=== PATIENT | female | born 1955 | race Hispanic/Latino ===

== ENCOUNTER → 2017-09-18 | Day surgery (SDC) | payer MEDICARE, OTHER ==
[2017-09-16 11:04] LABS: BLOOD UREA NITROGEN 11 mg/dL (7-26); BUN/CREATININE RATIO 17 (6-25); CARBON DIOXIDE 31 mmol/L (22-29); CHLORIDE 104 mmol/L (98-107); CREATININE, SERUM 0.65 mg/dL (0.57-1.11); EST GLOMERULAR FILTRATION RATE > 60 ML/MIN (60-); GLUCOSE 120 mg/dL (74-118); SODIUM 140 mmol/L (136-145)
[~2017-09-18] MED LIST: ATORVASTATIN CA20 MG PO; CEFTRIAXONE SOD 1 GM VIAL ONE; DEXAMETHASONE SOD PHOS INJ 4 MG/ML VIAL ONE; FENTANYL CITRATE/PF 100MCG/2 ML INJ ONE; GABAPENTIN300 MG PO; LIDOCAINE HCL 2% LOCAL INJ 5 ML SDV VIAL INJ ONE; METFORMIN HCL500 MG PO; MIDAZOLAM HCL 2 MG/2 ML VIAL ONE; ONDANSETRON HCL INJ 2 MG/ML VIAL ONE; PROPOFOL IV EMULSION 10 MG/ML 20 ML VIAL ONE; SEVOFLURANE INHAL SOLN 250 ML PEN BTL ONE
--- OUTSIDE RECORDS SUMMARY | 2017-09-18 06:02 | XMS REPORT ---
Author Author [facility] Address Unknown Phone Unavailable Care Team Providers Care Scientific Technical Writer Name Role Phone Unavailable Unavailable Problems This patient has no known problems. Allergies, Adverse Reactions, Alerts This patient has no known allergies or adverse reactions. Medications This patient has no known medications. Results Test Description Test Time Test Comments Text Results Atomic Results Result Comments CT ABDOMEN AND PELVIS W/WO CLINICAL INDICATION: R10.31 Right lower quadrant painR10.32 Left lower quadrant painR10.2 Pelvic and perineal painF33.2 Major depressv disorder, recurrent severe w/o psych featuresMODALITY: Siemens Aipai CT (Iterative dose reduction techniques are utilized.)TECHNIQUE: Helical imaging of the abdomen and pelvis is performed. Oral contrast is administered. 90 mls optiray are administered IV. Imaging performed prior to and after administration of contrast.Computed Tomography Dose Index: 47.68 mGy. IMPRESSION:1. No acute abnormality.2. Multiple, small nonobstructing bilateral renal calculi, predominately on the left.3. Hysterectomy.FINDINGS: COMPARISON: NoneThe lung bases are clear. No pleural disease is present. Aortic valve calcifications are noted.The liver is normal in size and contour with no focal attenuation defect suspicious for replacement lesion or abnormal contrast enhancement. Hepatic veins, portal venous system and biliary tree are normal. The gallbladder is normal in appearance.Stomach and duodenum are unremarkable. The spleen is normal in size and contour. No pancreatic mass, pancreatic duct dilatation or peripancreatic edema is visible.Adrenal glands are normal. Small bilateral renal cortical hypodensities are suggestive of cysts. A 6 mm nonobstructing stone is present in the right kidney lower pole. Multiple small nonobstructing stones are present in the left kidney lower pole. These measure up to 5 mm in size. There is no evidence of solid enhancing renal mass or hydronephrosis. The ureters are normal in caliber and without evidence of stone.Neither retrocrural nor retroperitoneal adenopathy is present. Vascular structures are within normal limits.No significant bowel pathology is noted. Normal appendix. Omentum and mesentery are unremarkable.Abdominal wall is intact.No ascites visualized.No lytic or blastic osseous lesions are observed.The urinary bladder is unremarkable.The uterus is absent. No suspicious adnexal masses. No free fluid in the pelvis.No pelvic or inguinal lymphadenopathy is evident.RS 436: [id number] (For official use only.)
--- NOTE | 2017-09-18 06:19 | Diagnostic Imaging Report ---
ABDOMEN-1VIEW (KUB) Clinical history: Preoperative lithotripsy Technique: AP view abdomen Comparison: None Findings: Abdomen: Nonobstructive bowel gas pattern. Other: 8 mm stone projects over the right lower kidney. Multiple stones project over the left lower kidney measuring up to 6 mm. 4 mm and 2 mm calculi overlying the right psoas. Impression: Bilateral nephrolithiasis. Several stones overlying the right psoas may be vascular or ureteral. Signed by: Dr Brina Denton MD on 09/18/2017 6:15 AM
--- NOTE | 2017-09-18 08:39 | Operative Report ---
DATE OF PROCEDURE: September 18, 2017 PREOPERATIVE DIAGNOSIS: Right kidney stone. 0POSTOPERATIVE DIAGNOSIS: Right kidney stone. PROCEDURES 1. Staged right-sided shock-wave lithotripsy. 2. Supervision of fluoroscopy. ANESTHESIA: General. ESTIMATED BLOOD LOSS: Minimal. COMPLICATIONS: None. INDICATIONS FOR PROCEDURE: Ms. Senior is a 62-year-old female with symptomatic right kidney stone that has failed a trial of passage. She and I had a long discussion regarding the alternatives, risks and benefits, including shock-wave lithotripsy. PROCEDURE IN DETAIL: After informed consent was obtained, the patient was taken to the operative suite and placed supine on the table and underwent general anesthesia by the anesthesia service. The stone was localized in the X-Y-Z planes. Total of 3,000 shocks at a maximum setting of 6 was delivered to the stone. The patient tolerated the procedure well and was transported to the recovery room in excellent condition. No untoward effects were noted. Supervision of fluoroscopy: I was present during the entire procedure and supervised fluoroscopy for the treatment. There was no radiologist present. Job#: [id number]
== END | disposition home or self-care (01) ==
LOC: OR 06:00
PROVIDERS: ATTEND Urology
DX: N20.0 Calculus of kidney (principal); N39.0 Urinary tract infection, site not specified; R35.1 Nocturia; E11.9 Type 2 diabetes mellitus without complications; R05 Cough; Z01.810 Encounter for preprocedural cardiovascular examination; Z01.812 Encounter for preprocedural laboratory examination; Z79.82 Long term (current) use of aspirin; Z68.31 Body mass index [BMI] 31.0-31.9, adult
CPT/HCPCS: 36415 ×2; 50590; 74018; 80048; 82948; 93005; J0696; J1100; J2001; J2250; J2405

== ENCOUNTER → 2017-10-02 | Day surgery (SDC) | payer MEDICARE, OTHER ==
[~2017-10-02] MED LIST changes: -CEFTRIAXONE SOD 1 GM VIAL ONE; +LEVOFLOXACIN 500MG/D5W 100ML 100 ML IV ONE
--- NOTE | 2017-10-02 07:47 | Diagnostic Imaging Report ---
PROCEDURE:X-RAY ABDOMEN - KUB COMPARISON:Abdomen one view 09/18/2017. INDICATIONS:RENAL STONES FINDINGS: There is a non-obstructed bowel-gas pattern. Moderate amount of retained feces is present in the colon and rectum. Multiple calculi project over the kidneys bilaterally. The largest in the right kidney measures 5.6 mm and projects over the inferior pole. The largest in the left kidney measures 6.6 mm and projects over the inferior pole. There are no calcifications projected over the expected course of the ureters or bladder. There are no acute osseous abnormalities. The lung bases are clear. CONCLUSION: Bilateral nephrolithiasis. Dictated by: Geovanny Monet M.D. on 10/02/2017 at 7:48 Electronically approved by: Geovanny Monet M.D. on 10/02/2017 at 7:48
--- NOTE | 2017-10-02 09:52 | Operative Report ---
DATE OF PROCEDURE: October 02, 2017 PREOPERATIVE DIAGNOSIS: Bilateral kidney stones. POSTOPERATIVE DIAGNOSIS: Bilateral kidney stones. PROCEDURES 1. Staged shock wave lithotripsy, left side. 2. Supervision of fluoroscopy. ANESTHESIA: General. ESTIMATED BLOOD LOSS: Minimal. COMPLICATIONS: None. INDICATIONS: Ms. Senior is a 62-year-old female who has failed a trial of passage with symptomatic right-sided kidney stone. She and I had a long discussion about alternatives, risks and benefits, including doing nothing, shock wave lithotripsy, ureteroscopy, percutaneous surgery and open surgery. She voiced understanding of the options, alternatives, risks and benefits, and elected to proceed. PROCEDURE IN DETAIL: After informed consent was obtained, the patient was taken to the operative suite, placed supine on the operating table, and underwent general anesthesia by the anesthesia service. The stone was then localized in the X, Y and Z planes. A total of 3000 shocks were delivered to the stone at a maximum power setting of 6. The patient tolerated the procedure well and was transported to the recovery room in excellent condition. SUPERVISION OF FLUOROSCOPY: I was present throughout the entire procedure and I supervised the use of fluoroscopy as no radiologist was present. Job#: [id number]
== END | disposition home or self-care (01) ==
LOC: OR 06:07
PROVIDERS: ATTEND Urology
DX: N20.0 Calculus of kidney (principal); E11.9 Type 2 diabetes mellitus without complications; G62.9 Polyneuropathy, unspecified; Z79.84 Long term (current) use of oral hypoglycemic drugs
CPT/HCPCS: 36415; 50590; 74018; 82948; J1100; J1956; J2001; J2250; J2405